=== PATIENT | female | born 1950 | race Caucasian/White ===

== ENCOUNTER 2024-09-30 07:24 | Day surgery (SDC) | payer MEDICARE, OTHER ==
[~2024-09-30] VITALS: Ht 157.5 cm; Wt 76.9 kg
[~2024-09-30 07:24] MED LIST: ATEN50TA2 PO; ATOR40TA75 PO; CALC-132 PO; LR 1,000 ML IV SCH; MECL-86 PO; METF-838 PO; OMEP40CA5 PO; TRIA37.577 PO; VALS1TAB66 PO
[2024-09-30] MEDS: TETRACAINE 0.5% OPHTH SOLN 4ML OS SCH (08:17)
[2024-09-30] MEDS: CYCLOPENTOLATE 1% OPHTH SOLN 2ML BTL OS SCH (08:17)
[2024-09-30] MEDS: FLURBIPROFEN 0.03% OPHTH SOLN 2.5 ML OS SCH (08:17)
[2024-09-30] MEDS: PHENYLEPHRINE 2.5% OPHTH SOL 2ML OS SCH (08:17)
[2024-09-30] MEDS: LIDOCAINE 1% SDV 5ML VIAL As Ordered ONE (09:42)
[2024-09-30] MEDS ORDERED: dexmedeTOMIDine (4MCG/ML)200MCG/50ML BTL (PRECEDEX) As Ordered ONE (09:43)
[2024-09-30] MEDS: CEFUROXIME 1MG/0.1ML INTRACAMERAL INJ As Ordered ONE (09:48)
[2024-09-30 10:03] VITALS: BP 146/61; TEMP 96.3; O2SAT 96
== END 2024-09-30 10:23 | disposition home or self-care (01) ==
LOC: M SDC 07:24
PROVIDERS: ATTEND Ophthalmology
DX: E11.36 Type 2 diabetes mellitus with diabetic cataract (principal); H25.12 Age-related nuclear cataract, left eye; I10 Essential (primary) hypertension; E78.00 Pure hypercholesterolemia, unspecified; Z79.899 Other long term (current) drug therapy; Z79.84 Long term (current) use of oral hypoglycemic drugs; Z91.013 Allergy to seafood; K21.9 Gastro-esophageal reflux disease without esophagitis; Z88.1 Allergy status to other antibiotic agents; Z90.710 Acquired absence of both cervix and uterus
CPT/HCPCS: 66984; J0697; V2632